=== PATIENT | female | born 1970 | race Caucasian/White ===

== ENCOUNTER 2018-05-01 15:12 | Emergency (ER) | payer MEDICAID ==
[2018-05-01] MEDS: IBUPROFEN 600 MG TAB PO (18:36)
[2018-05-01] MEDS: CEPHALEXIN 500 MG CAP PO (18:37)
[2018-05-01] MEDS: TRIMETHOPRIM/SULFAMETHOX (DS) TAB PO (18:37)
== END 2018-05-01 19:06 | disposition home or self-care (01) ==
LOC: FTE 19:06
DX: L02.212 Cutaneous abscess of back [any part, except buttock and flank] (principal); E11.9 Type 2 diabetes mellitus without complications; Z79.84 Long term (current) use of oral hypoglycemic drugs
CPT/HCPCS: 99284; Z7502

== ENCOUNTER 2019-02-14 10:34 | Emergency (ER) | payer MEDICAID ==
[2019-02-14] MEDS: KETOROLAC 30 MG INJ IM (12:35)
== END 2019-02-14 12:31 | disposition home or self-care (01) ==
LOC: FTE 10:34
DX: M54.12 Radiculopathy, cervical region (principal); E11.9 Type 2 diabetes mellitus without complications; Z79.84 Long term (current) use of oral hypoglycemic drugs
CPT/HCPCS: 81025; 99282